=== PATIENT | female | born 1980 | race American Indian/Alaskan Native ===

== ENCOUNTER 2017-08-14 12:41 | Emergency (ER) | payer MEDICAID ==
[2017-08-14 13:33] VITALS: BP 108/66
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
[2017-08-14] MEDS ORDERED: BOOSTRIX IM ONE (19:51)
[2017-08-14] MEDS ORDERED: MOTRIN PO ONE (19:52)
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
== END 2017-08-14 20:50 | disposition home or self-care (01) ==
LOC: ED 12:41
DX: S06.0X0A Concussion without loss of consciousness, initial encounter (principal); D64.9 Anemia, unspecified; Z87.891 Personal history of nicotine dependence; V89.0XXA Person injured in unspecified motor-vehicle accident, nontraffic, initial encounter; W22.19XA Striking against or struck by other automobile airbag, initial encounter; Y93.89 Activity, other specified; Y92.89 Other specified places as the place of occurrence of the external cause; Y99.8 Other external cause status
CPT/HCPCS: 70450; 71020; 72125; 90471; 90715

== ENCOUNTER 2018-03-19 21:01 | Inpatient (IN) | payer MEDICAID, OTHER ==
[2018-03-19 21:27] LABS: Hematocrit 37.8 % (30.3-42.9); Hemoglobin 12.9 gm/dl (10.1-14.3); Mean Corpuscular HGB Conc 34 % (30-34); Mean Corpuscular Hemoglobin 33 pg (28-32); Mean Corpuscular Volume 98 fl (79-97); Platelet Count 282 K/mm3 (140-440); Red Blood Count 3.88 M/mm3 (3.65-5.03)
[2018-03-19 21:45] LABS: BUN/Creatinine Ratio 20; Blood Urea Nitrogen 14 mg/dL (7-17); Calcium 9.2 mg/dL (8.4-10.2); Hemolysis Index 0
[2018-03-19 23:21] LABS: Bacteria,Urine 1+ /HPF (Negative); Bilirubin,Urine NEG (Negative); Blood,Urine MOD (Negative); Color,Urine Yellow (Yellow); HCG Qualitative,Urine Negative (Negative); Mucus,Urine FEW /HPF; Protein,Urine <15 mg/dL mg/dL (Negative)
--- NOTE | 2018-03-20 02:47 | Emergency Department Report ---
HPI - General Chief Complaint: Neuro Symptoms/Deficit Time Seen by Provider: 03/20/18 02:30 - HPI HPI: Room 4 The patient is a 37-year-old female presenting with a chief complaint of right hand numbness. The patient states for one week she's had intermittent tingling of her right hand. Patient states the numbness is limited to the palmar aspect of her right hand. Patient states sometimes in the middle of the night she awakens with this numbness and possibly paralysis of the right hand. The patient states today in addition to the numbness of the right hand she develop numbness in her right foot while waiting in the waiting (approximate 40 minutes prior to interview). Patient denies dysarthria or dysphagia. 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 The patient's mother has a history of carpal tunnel syndrome Location: Right hand, right foot Duration: Intermittent times one week Quality: Numbness Severity: Moderate Modifying factors: [see above] Context: [see above] Mode of transportation: Unknown ED Past Medical Hx - Past Medical History Additional medical history: ANEMIA - Surgical History Additional Surgical History: X 3. TUBAL LIGATION. TONSILLECTOMY - Family History Family history: no significant - Social History Smoking Status: Former Smoker (none 2 years) Substance Use Type: None (denies illicit drug use), Alcohol (occasional) - Medications Home Medications: Home Medications Medication Instructions Recorded Confirmed Last Taken Type Bacitracin Zinc Oint [Antibiotic 1 applicatio TP BID #1 tube 08/14/17 Unknown Rx Oint] Cyclobenzaprine [Flexeril] 10 mg PO TID PRN #12 tablet 08/14/17 Unknown Rx Ibuprofen [Motrin] 800 mg PO Q8HR PRN #30 tablet 08/14/17 Unknown Rx ED Review of Systems ROS: Stated complaint: RIGHT ARM PAIN Other details as noted in HPI Constitutional: no symptoms reported Eyes: denies: eye pain ENT: denies: throat pain Cardiovascular: denies: chest pain Gastrointestinal: denies: abdominal pain Genitourinary: denies: dysuria Musculoskeletal: denies: back pain Neurological: numbness, paresthesias Physical Exam - Physical Exam Vital Signs: Vital Signs 03/19/18 03/19/18 03/20/18 21:01 21:07 02:23 Temperature 98.2 F 99.1 F Pulse Rate 63 69 Respiratory 18 18 18 Rate Blood Pressure 139/84 139/84 O2 Sat by Pulse 99 100 100 Oximetry Physical Exam: GENERAL: The patient is well-developed well-nourished female lying on stretcher not appearing to be in acute distress. [] HEENT: Normocephalic. Atraumatic. Extraocular motions are intact. Patient has moist mucous membranes. NECK: Supple. Trachea midline CHEST/LUNGS: Clear to auscultation. There is no respiratory distress noted. HEART/CARDIOVASCULAR: Regular. There is no tachycardia. There is no gallop rub or murmur. ABDOMEN: Abdomen is soft, nontender. Patient has normal bowel sounds. There is no abdominal distention. SKIN: There is no rash. There is no edema. There is no diaphoresis. NEURO: The patient is awake, alert, and oriented. The patient is cooperative. The patient has no focal neurologic deficits. The patient has normal speech. Cranial nerves II through XII grossly intact, no drift. Patient complains of numbness in the right foot. Patient able to hold each leg at 30 above the stretcher for 5 seconds count MUSCULOSKELETAL: There is no evidence of acute injury. NIHSS= 1 LOC a. Alert= 0 Not alert but arousable to minor stimuli=1 Not alert requires repeated or strong stimuli to move= 2 Responds only reflex motor or unresponsive=3 b. asks month and age answers both correctly= 0 answers one correctly= 1 answers neither correctly= 2 Best Gaze normal= 0 abnormal in one or both but forced deviation or total paresis absent= 1 forced deviation or total gaze paresis= 2 Visual no visual loss= 0 partial hemianopia= 1 complete hemianopia= 2 bilateral hemianopia= 3 Facial Palsy normal= 0 minor paralysis= 1 partial paralysis= 2 complete paralysis= 3 Motor Arm no drift= 0 drift before 10 secs but doesnt hit bed= 1 some effort against gravity= 2 no effort against gravity= 3 no movement= 4 Motor leg no drift= 0 drift before 5 secs but doesnt hit bed= 1 drifts to bed before 5 secs= 2 no effort against gravity= 3 no movement= 4 Limb ataxia absent=0 present in one limb= 1 present in two limbs= 2 Sensory normal= 0 (+)mild sensory loss= 1 severe (unaware of being touched)= 2 Best language mild/some loss of fluency= 1 severe= 2 mute= 3 Dysarthria normal= 0 slurs some words= 1 severe/unintelligible= 2 Extinction and Inattention no abnormality= 0 visual, tactile, auditory or personal inattention= 1 profound (doesnt recognize own hand or orients to only one side= 2 ED Course Vital Signs 03/19/18 03/19/18 03/20/18 21:01 21:07 02:23 Temperature 98.2 F 99.1 F Pulse Rate 63 69 Respiratory 18 18 18 Rate Blood Pressure 139/84 139/84 O2 Sat by Pulse 99 100 100 Oximetry ED Medical Decision Making - Lab Data Result diagrams: 03/19/18 21:16 03/19/18 21:16 Laboratory Tests 03/19/18 03/19/18 03/19/18 21:16 21:16 22:38 WBC 5.3 RBC 3.88 Hgb 12.9 Hct 37.8 MCV 98 H MCH 33 H MCHC 34 RDW 13.0 L Plt Count 282 Sodium 140 Potassium 4.1 Chloride 101.1 Carbon Dioxide 28 Anion Gap 15 BUN 14 Creatinine 0.7 Estimated GFR > 60 BUN/Creatinine Ratio 20 Glucose 115 H Calcium 9.2 Urine Color Yellow Urine Turbidity Clear Urine pH 7.0 Ur Specific [place] 1.023 Urine Protein <15 mg/dl Urine Glucose (UA) Neg Urine Ketones Neg Urine Blood Mod Urine Nitrite Neg Urine Bilirubin Neg Urine Urobilinogen 4.0 Ur Leukocyte Esterase Tr Urine WBC (Auto) 5.0 Urine RBC (Auto) 5.0 U Epithel Cells (Auto) 28.0 H Urine Bacteria (Auto) 1+ Urine Mucus Few Urine HCG, Qual Negative - EKG Data -: EKG Interpreted by Me EKG shows normal: sinus rhythm Rate: normal - EKG Data When compared to previous EKG there are: previous EKG unavailable - Radiology Data Radiology results: report reviewed (CT head), image reviewed (CT head) CT head (read by radiologist)-no grossly acute intracranial abnormality - Differential Diagnosis CVA, TIAs, carpal tunnel syndrome Critical care attestation.: If time is entered above; I have spent that time in minutes in the direct care of this critically ill patient, excluding procedure time. ED Disposition Clinical Impression: Numbness on right side Disposition: DC-09 OP ADMIT IP TO THIS HOSP Is pt being admited?: Yes Does the pt Need Aspirin: Yes Condition: Fair Referrals: PRIMARY CARE,MD [Primary Care Provider] - 3-5 Days Time of Disposition: 03:58 (hospitalist paged (Dr. Stephy Kaur))
--- NOTE | 2018-03-20 03:57 | Cat Scan Report ---
FINAL REPORT EXAM: CT HEAD/BRAIN WO CON HISTORY: right hand, right foot numbness COMPARISON: CT of the head from July 2017. TECHNIQUE: Axial images obtained skull base through vertex. FINDINGS: No acute intracranial hemorrhage, midline shift or pathologic extra axial fluid collection. Ventricles and cisterns are normal in size and configuration for the patient's age. Yan-white differentiation preserved. Calvarium grossly intact. Visualized ocular globes are grossly unremarkable. Visualized para-nasal sinuses and mastoid air cells are clear. IMPRESSION: No grossly acute intracranial abnormality.
[2018-03-20] MEDS ORDERED: ASPIRIN PO ONE (03:59)
[2018-03-20] MEDS ORDERED: PHENERGAN PR PRN (07:23)
[2018-03-20] MEDS ORDERED: ZOFRAN IV PRN (07:23)
[2018-03-20] MEDS ORDERED: REGLAN PO PRN (07:23)
[2018-03-20] MEDS ORDERED: DULCOLAX PR PRN (07:23)
[2018-03-20] MEDS ORDERED: NORCO 5/325 PO PRN (07:23)
[2018-03-20] MEDS ORDERED: TYLENOL PO PRN (07:23)
[2018-03-20] MEDS ORDERED: SODIUM CHLORIDE FLUSH SYRINGE 10 ML IV PRN (07:23)
[2018-03-20] MEDS ORDERED: MILK OF MAGNESIA PO PRN (07:23)
--- NOTE | 2018-03-20 09:52 | History and Physical Report ---
History of Present Illness Date of admission: 03/20/18 04:01 Medications and Allergies Allergies Allergy/AdvReac Type Severity Reaction Status Date / Time No Known Allergies Allergy Verified 05/13/15 16:49 Home Medications Medication Instructions Recorded Confirmed Last Taken Type No Known Home Medications [No 03/20/18 03/20/18 Unknown History Reported Home Medications] Active Meds: Active Medications Acetaminophen (Tylenol) 650 mg PO Q4H PRN PRN Reason: Pain, Mild (1-3) Acetaminophen/Hydrocodone Bitart ([place] 5/325) 1 each PO Q6H PRN PRN Reason: Pain, Moderate (4-6) Aspirin (Aspirin) 325 mg PO QDAY MOISES Bisacodyl (Dulcolax) 10 mg VT QDAY PRN PRN Reason: Constipation Magnesium Hydroxide (Milk Of Magnesia) 30 ml PO Q4H PRN PRN Reason: Constipation Metoclopramide HCl (Reglan) 10 mg PO Q6H PRN PRN Reason: Nausea And Vomiting Ondansetron HCl (Zofran) 4 mg IV Q8H PRN PRN Reason: N/V unrelieved by Reglan Promethazine HCl (Phenergan) 25 mg VT Q6H PRN PRN Reason: Nausea And Vomiting Sodium Chloride (Sodium Chloride Flush Syringe 10 Ml) 10 ml IV PRN PRN PRN Reason: LINE FLUSH Exam - Physical Exam Narrative exam: Gen : Not in acute distress, HEENT:Normocephalic, atraumatic Neck: supple, No JVD Lungs: Clear to auscultation, bilaterally, no rhonchi Heart :S1 and S2 reg, no murmurs, rubs or gallop Abd:soft, non tender, non distended, normal bowel sounds Ext: No edema, no clubbing, no cyanosis, Neuro: Awake,alert,oriented x 3, Psych:normal mood - Constitutional Vitals: Temp Pulse Resp BP Pulse Ox 99.1 F 61 16 126/81 99 03/19/18 21:07 03/20/18 05:35 03/20/18 05:35 03/20/18 05:35 03/20/18 05:35 Results - Labs CBC & Chem 7: 03/19/18 21:16 03/19/18 21:16 Labs: Abnormal lab results 03/19/18 03/19/18 03/19/18 Range/Units 21:16 21:16 22:38 MCV 98 H (79-97) fl MCH 33 H (28-32) pg RDW 13.0 L (13.2-15.2) % Glucose 115 H (65-100) mg/dL U Epithel Cells (Auto) 28.0 H (0-13.0) /HPF
--- NOTE | 2018-03-20 11:33 | Magnetic Resonance Report ---
MRA HEAD WITHOUT CONTRAST HISTORY: Stroke. [id number] imaging with MIP reformations of the knik of [place] is submitted. The arteries appear widely patent and free of hemodynamically significant stenosis, aneurysm or dissection. IMPRESSION: Unremarkable MRA head.
--- NOTE | 2018-03-20 11:33 | Magnetic Resonance Report ---
MRI OF THE BRAIN WITHOUT CONTRAST: HISTORY: CVA PROCEDURE: Multiplanar, multisequence MR imaging of the brain without IV contrast was performed. FINDINGS: Compared to CT head performed 03/20/18. The brain parenchyma signal intensity and its solomon white interface are within normal limits on all sequences. No evidence for acute ischemia, hemorrhage or mass. No chronic infarct or extra-axial fluid collection. The midline structures are central. The basal cisterns are patent. Normal ventricular size. The orbital cavities and sella turcica demonstrate no abnormality. The visualized paranasal sinuses and mastoid air cells are well aerated. IMPRESSION: Unremarkable non-enhanced MRI of the brain.
--- NOTE | 2018-03-20 17:09 | Consultation ---
History of Present Illness Consult date: 03/20/18 History of present illness: very minimal elevation of the blood sugar so I doubt diabetic neuropathy... the MRI/ MRA are negative and I see no evidence of MS being present on the MRI at age 37 could represent TIA or stroke will review ECHO for PFO Medications and Allergies Allergies Allergy/AdvReac Type Severity Reaction Status Date / Time No Known Allergies Allergy Verified 05/13/15 16:49 Home Medications Medication Instructions Recorded Confirmed Last Taken Type No Known Home Medications [No 03/20/18 03/20/18 Unknown History Reported Home Medications] Active Meds: Active Medications Acetaminophen (Tylenol) 650 mg PO Q4H PRN PRN Reason: Pain, Mild (1-3) Acetaminophen/Hydrocodone Bitart ([place] 5/325) 1 each PO Q6H PRN PRN Reason: Pain, Moderate (4-6) Aspirin (Aspirin) 325 mg PO QDAY MOISES Bisacodyl (Dulcolax) 10 mg DC QDAY PRN PRN Reason: Constipation Magnesium Hydroxide (Milk Of Magnesia) 30 ml PO Q4H PRN PRN Reason: Constipation Metoclopramide HCl (Reglan) 10 mg PO Q6H PRN PRN Reason: Nausea And Vomiting Ondansetron HCl (Zofran) 4 mg IV Q8H PRN PRN Reason: N/V unrelieved by Reglan Promethazine HCl (Phenergan) 25 mg DC Q6H PRN PRN Reason: Nausea And Vomiting Sodium Chloride (Sodium Chloride Flush Syringe 10 Ml) 10 ml IV PRN PRN PRN Reason: LINE FLUSH Physical Examination - Vital Signs Vital Signs: Vital Signs Temp Pulse Resp BP Pulse Ox 98.2 F 63 18 139/84 99 03/19/18 21:01 03/19/18 21:01 03/19/18 21:01 03/19/18 21:01 03/19/18 21:01 Results - Laboratory Findings CBC and BMP: 03/19/18 21:16 03/19/18 21:16 Abnormal Lab Findings: Abnormal Labs 03/19/18 03/19/18 03/19/18 21:16 21:16 22:38 MCV 98 H MCH 33 H RDW 13.0 L Glucose 115 H U Epithel Cells (Auto) 28.0 H
--- NOTE | 2018-03-20 17:37 | Progress Note ---
Subjective Date of service: 03/20/18 Interval history: explained dx to patient and likely carpal tunnel syndrome gave rx pyridoxine Objective - Vital Sign Vital Signs - 12hr 03/20/18 13:08 Temperature 98.0 F Pulse Rate 60 Respiratory 18 Rate Blood Pressure 113/73 O2 Sat by Pulse 97 Oximetry - Laboratory Findings CBC and BMP: 03/19/18 21:16 03/19/18 21:16 Abnormal Lab Findings: Abnormal Labs 03/19/18 03/19/18 03/19/18 21:16 21:16 22:38 MCV 98 H MCH 33 H RDW 13.0 L Glucose 115 H U Epithel Cells (Auto) 28.0 H
[2018-03-20 17:53] VITALS: BP 115/81
--- NOTE | 2018-03-20 20:04 | Discharge Summary ---
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
[2018-03-21] MEDS ORDERED: ASPIRIN PO SCH (10:00)
== END 2018-03-20 19:30 | disposition left against medical advice (07) | DRG 93 ==
LOC: ED 21:01 → 4A 03-20 04:01 → 3A 03-20 12:15
PROVIDERS: ADMIT Internal Medicine; ATTEND Internal Medicine
DX: R20.0 Anesthesia of skin (principal); Z98.51 Tubal ligation status; Z87.891 Personal history of nicotine dependence
CPT/HCPCS: 36415; 70450; 70544; 70551; 80048; 81001; 81025; 85027; 93005; 93010; 93306; 93880

== ENCOUNTER 2019-02-12 19:13 | Emergency (ER) | payer OTHER ==
[2019-02-12 19:50] VITALS: BP 136/89
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
[2019-02-12] MEDS ORDERED: TYLENOL PO ONE (22:06)
[2019-02-12] MEDS ORDERED: ULTRAM PO ONE (23:05)
--- NOTE | 2019-02-12 23:56 | XRay Report ---
PROCEDURE: XR SPINE CERVICAL 2-3V TECHNIQUE: AP, lateral and odontoid views are obtained. HISTORY: posterior neck pain COMPARISONS: FINDINGS: The neck is held in flexion. The prevertebral soft tissues appear normal. No fracture or subluxation is visualized. Anterior osteophytic spurring visualized at C3-4, C4-5 and C5-C6 disc spaces. Minimal posterior osteophytic spurring also seen at C5-C6. Disc spaces otherwise are well maintained. Posteri or elements are intact. IMPRESSION: Degenerative disc disease as described. No fracture or subluxation is visualized.. This document is electronically signed by Juan Reeys MD., Feb 12 2019 11:54:19 PM ET
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
== END 2019-02-13 00:51 | disposition home or self-care (01) ==
LOC: ED 19:13
DX: S16.1XXA Strain of muscle, fascia and tendon at neck level, initial encounter (principal); S39.012A Strain of muscle, fascia and tendon of lower back, initial encounter; Z86.2 Personal history of diseases of the blood and blood-forming organs and certain disorders involving the immune mechanism; Z98.51 Tubal ligation status; Z90.89 Acquired absence of other organs; V87.7XXA Person injured in collision between other specified motor vehicles (traffic), initial encounter; Y93.89 Activity, other specified; Y92.488 Other paved roadways as the place of occurrence of the external cause; Y99.8 Other external cause status
CPT/HCPCS: 72040; 72070; 99283

== ENCOUNTER 2019-09-01 14:44 | Emergency (ER) | payer SELFPAY ==
[2019-09-01 14:58] VITALS: BP 115/65
--- NOTE | 2019-09-01 15:05 | Emergency Department Report ---
Chief Complaint: Upper Respiratory Infection Stated Complaint: FLU SX Time Seen by Provider: 09/01/19 14:56 - HPI History of Present Illness: This is a 38 y.o. F. that presents to the ER with congestion, chills, cough, and fever for 2 weeks. Taking theraflu and mucinex without relief. Current cigar smoker. MSE screening note: Focused history and physical exam performed. Due to findings the following was ordered: ED Disposition for MSE Condition: Stable
--- NOTE | 2019-09-01 19:32 | Emergency Department Report ---
- General Chief Complaint: Upper Respiratory Infection Stated Complaint: FLU SX Time Seen by Provider: 09/01/19 14:56 Source: patient Mode of arrival: Ambulatory Limitations: No Limitations - History of Present Illness Initial Comments: Patient is a 38-year-old female presents emergency room with complaint of URI symptoms that began 2 weeks ago. pt has associated productive cough, body aches, congestion, intermittent subjective fever. She states that she has been taking Mucinex and TheraFlu over the last 2 weeks without much relief. She denies any chest pain, shortness of breath, vomiting, diarrhea, any other symptoms. She denies any past medical history or allergies medications. She states her last menstrual cycle was the end of July. She states she has occurred every day smoker. - Related Data Previous Rx's Medication Instructions Recorded Last Taken Type Cyclobenzaprine [Flexeril] 10 mg PO TID PRN #30 tablet 02/13/19 Unknown Rx Menthol/Camphor [[place] 1 applicatio TP QID PRN #1 tube 02/13/19 Unknown Rx Ointment] Naproxen [Naprosyn] 500 mg PO BID PRN #30 tablet 02/13/19 Unknown Rx Azithromycin [Zithromax Z-CARLOS] 250 mg PO DAILY 5 Days #6 tablet 09/01/19 Unknown Rx predniSONE [Deltasone] 40 mg PO QDAY 5 Days #10 tab 09/01/19 Unknown Rx Allergies Allergy/AdvReac Type Severity Reaction Status Date / Time No Known Allergies Allergy Verified 09/01/19 14:48 ED Review of Systems ROS: Stated complaint: FLU SX Other details as noted in HPI Comment: All other systems reviewed and negative ED Past Medical Hx - Past Medical History Previous Medical History?: Yes Additional medical history: ANEMIA - Surgical History Past Surgical History?: Yes Additional Surgical History: X 3. TUBAL LIGATION. TONSILLECTOMY - Social History Smoking Status: Current Every Day Smoker Substance Use Type: Alcohol - Medications Home Medications: Home Medications Medication Instructions Recorded Confirmed Last Taken Type Cyclobenzaprine [Flexeril] 10 mg PO TID PRN #30 tablet 02/13/19 Unknown Rx Menthol/Camphor [[place] 1 applicatio TP QID PRN #1 tube 02/13/19 Unknown Rx Ointment] Naproxen [Naprosyn] 500 mg PO BID PRN #30 tablet 02/13/19 Unknown Rx Azithromycin [Zithromax Z-CARLOS] 250 mg PO DAILY 5 Days #6 tablet 09/01/19 Unknown Rx predniSONE [Deltasone] 40 mg PO QDAY 5 Days #10 tab 09/01/19 Unknown Rx ED Physical Exam - General Limitations: No Limitations General appearance: alert, in no apparent distress - Head Head exam: Present: atraumatic, normocephalic - Eye Eye exam: Present: normal appearance - ENT ENT exam: Present: normal orophraynx, mucous membranes moist - Respiratory Respiratory exam: Present: normal lung sounds bilaterally. Absent: respiratory distress, wheezes, rales, rhonchi, stridor, chest wall tenderness, accessory muscle use, decreased breath sounds, prolonged expiratory - Cardiovascular Cardiovascular Exam: Present: regular rate, normal rhythm, normal heart sounds. Absent: systolic murmur, diastolic murmur, rubs, gallop - Neurological Exam Neurological exam: Present: alert, oriented X3 - Psychiatric Psychiatric exam: Present: normal affect, normal mood - Skin Skin exam: Present: warm, dry, intact ED Course Vital Signs 09/01/19 14:56 Temperature 98.5 F Pulse Rate 80 Respiratory 18 Rate Blood Pressure 115/65 O2 Sat by Pulse 100 Oximetry ED Medical Decision Making - Medical Decision Making Patient is a 38-year-old female presents emergency room with complaint of URI symptoms that began 2 weeks ago. pt has associated productive cough, body aches, congestion, intermittent subjective fever. She states that she has been taking Mucinex and TheraFlu over the last 2 weeks without much relief. She denies any chest pain, shortness of breath, vomiting, diarrhea, any other symptoms. She denies any past medical history or allergies medications. She states her last menstrual cycle was the end of July. She states she has occurred every day smoker. Vitals are normal. Breath sounds are clear bilaterally without wheezing, rales, rhonchi. given that pt is a current every day smoker and has a productive cough will treat pt for acute bronchitis. Patient given prescription for azithromycin and prednisone. discussed smoking cessation with pt. advised pt please take medication as prescribed. Increase your fluid intake over the next several days. Follow-up with a primary care doctor in the next 2-3 days. Return to the emergency room for any new or worsening symptoms. - Differential Diagnosis PNA, URI, bronchitis, asthma, COPD, allergies Critical care attestation.: If time is entered above; I have spent that time in minutes in the direct care of this critically ill patient, excluding procedure time. ED Disposition Clinical Impression: Acute bronchitis Qualifiers: Bronchitis organism: unspecified organism Qualified Code(s): J20.9 - Acute bronchitis, unspecified Disposition: DC-01 TO HOME OR SELFCARE Is pt being admited?: No Does the pt Need Aspirin: No Condition: Stable Instructions: Acute Bronchitis (ED) Additional Instructions: please take medication as prescribed. Increase your fluid intake over the next several days. Follow-up with a primary care doctor in the next 2-3 days. Return to the emergency room for any new or worsening symptoms. Prescriptions: predniSONE [Deltasone] 40 mg PO QDAY 5 Days #10 tab Azithromycin [Zithromax Z-CARLOS] 250 mg PO DAILY 5 Days #6 tablet Referrals: LOPEZ BALDERRAMA MD [Staff Physician] - 2-3 Days [facility] [Outside] - 2-3 Days [facility] [Outside] - 2-3 Days Time of Disposition: 19:30 Print Language: KAZAKH
== END 2019-09-01 20:05 | disposition home or self-care (01) ==
LOC: ED 14:44
DX: J20.9 Acute bronchitis, unspecified (principal); F17.200 Nicotine dependence, unspecified, uncomplicated; Z86.2 Personal history of diseases of the blood and blood-forming organs and certain disorders involving the immune mechanism; Z98.51 Tubal ligation status; Z98.890 Other specified postprocedural states; Z90.49 Acquired absence of other specified parts of digestive tract; Z79.899 Other long term (current) drug therapy
CPT/HCPCS: 99282